=== PATIENT | female | born 1960 | race Caucasian/White ===

== ENCOUNTER 2017-09-14 09:00 | Outpatient (CLI) | payer BC ==
[2017-09-14 15:31] LABS: #Eosinphils 0.3 thou/uL (0.0-0.7); #Lymphocytes 2.6 thou/uL (1.20-3.40); #Monocytes 0.8 thou/uL (0.11-0.59); #Neutrophils 3.5 thou/uL (1.40-6.50); %Basophils 0.3 % (0.0-1.0); %Eosinophils 3.6 % (0.0-10.0); %Lymphocytes 36.4 % (21.0-51.0); %Monocytes 11.6 % (0.0-10.0); Hematocrit 35.6 % (36.0-47.0); Mean Platelet Volume 8.4 fL (7.4-10.4); Red Blood Cell (RBC) Count 4.14 mill/uL (4.20-5.40); White Blood Cell (WBC) Count 7.2 thou/uL (4.8-10.8)
[2017-09-14 15:55] LABS: ALT (SGPT) 38 U/L (8-55); AST (SGOT) 46 U/L (5-34); Alkaline Phosphatase 133 U/L (40-150); Anion Gap 14 mmol/L (10-20); BUN (Urea Nitrogen) 13 mg/dL (9.8-20.1); Bilirubin, Total 0.3 mg/dL (0.2-1.2); Calc. Creatinine Clearance 0 mL/min (70-130); Calcium 9.3 mg/dL (7.8-10.44); Carbon Dioxide 28 mmol/L (22-29); Chloride 103 mmol/L (98-107); Estimated GFR-MDRD 54; Globulin 3.3 g/dL (2.4-3.5); Protein, Total 7.1 g/dL (6.0-8.3)
--- NOTE | 2017-09-14 18:10 | EKG ---
Test Reason : Blood Pressure : / mmHG Vent. Rate : 090 BPM Atrial Rate : 090 BPM P-R Int : 124 ms QRS Dur : 088 ms QT Int : 372 ms P-R-T Axes : 056 051 006 degrees QTc Int : 455 ms Normal sinus rhythm Nonspecific ST and T wave abnormality Abnormal ECG When compared with ECG of 24-JUN-2016 17:26, Nonspecific T wave abnormality now evident in Anterior leads Confirmed by DR. Darrian CHAMBERLAIN ([id number]) on 09/14/2017 6:09:57 PM Referred By: JOSE Confirmed By:DR. Darrian CHAMBERLAIN
== END 2017-09-14 09:01 | disposition home or self-care (01) ==
LOC: LABBT 09:00
PROVIDERS: ATTEND Surgery
DX: Z01.818 Encounter for other preprocedural examination (principal); N62 Hypertrophy of breast
CPT/HCPCS: 80053; 85025; 93005; 93010

== ENCOUNTER 2017-09-15 07:06 | Day surgery (SDC) | payer BC ==
[2017-09-14 15:22] VITALS: BMI 36.6
[2017-09-15] MEDS ORDERED: CEFAZOLIN/Water 2 GM/20 ML SYRINGE ONE (08:39)
[2017-09-15] MEDS ORDERED: Bupivacaine/Epinephrine 0.25% 30 ML VIAL ONE (10:24)
[2017-09-15] MEDS ORDERED: Midazolam HCl 2 mg/2 ml Vial ONE (10:30)
[2017-09-15] MEDS ORDERED: Fentanyl 100 MCG/2 ML VIAL ONE ×3 (10:30→11:52)
--- NOTE | 2017-09-15 11:53 | OP ---
PREOPERATIVE DIAGNOSIS: Atypical ductal hyperplasia, right breast. SURGEON: Subhash Hernandez M.D. PROCEDURE PERFORMED: Right needle localization lumpectomy. INDICATIONS: A 57-year-old female who had an abnormal mammogram, underwent a core needle biopsy came back positive for atypical ductal hyperplasia, here for reexcision. FINDINGS: Very superficial lesion was actually visible just under the skin, anteriorly under the are alexandra. DESCRIPTION OF PROCEDURE: After informed consent was obtained, the patient was taken to the operatin g room and given general mask anesthesia, placed in the supine position. Her chest was prepped and d raped in the usual fashion. Local anesthesia infiltrated subcutaneously and deep. She had undergone needle localization in the mammography suite. A circumareolar incision was performed. Subcu divide d sharply. The skin was dissected just very anterior right below the skin and then a core of breast tissue excised around the needle. It was marked with the black suture anterior and the needle latera l and a blue suture superior, sent to pathology for further analysis. Hemostasis was achieved with e lectrocautery. The subcutaneous reapproximated with interrupted 3-0 Vicryl. Skin closed with a runn ing subcuticular 4-0 Rapide. Steri-Strips applied. Sterile bandage applied. The patient tolerated the procedure well and transferred to recovery in good condition. Sponge and needle count verified c orrect x2.
[2017-09-15] MEDS ORDERED: HYDROcodone/Acetaminophen 5/325 mg Tablet ONE (13:07)
--- NOTE | 2017-09-15 13:10 | MMO ---
MAMMOGRAPHIC GUIDED NEEDLE LOCALIZATION OF RIGHT BREAST MASS SURGICAL SPECIMEN MAMMOGRAPHY OF RIGHT BREAST: HISTORY: Atypical ductal hyperplasia, right breast. FINDINGS: After explaining the procedure and answering all questions, the lateral aspect of the right breast wa s prepped and draped in the usual sterile fashion. Sterile technique, buffered local anesthesia, petey mographic guidance, and a lateral approach were used to carefully advance the tip of a 5 cm [place] nee dle and wire, to lie immediately deep to the localization clip and lobulated mass at the anterior-inf erior aspect of the right breast. Position was confirmed with mammography. The localization wire an d needle were left in place. The patient tolerated the procedure well and was transferred to surgery in good condition. Surgical specimen mammography obtained by Dr. Hernandez shows the localization wire, the clip, and the lo bulated mass to be within the surgical specimen. IMPRESSION: Technically successful needle localization of right breast mass. POS: [facility]
[2017-09-15] MEDS ORDERED: Dexamethasone 20 MG/5 ML VIAL ONE (16:31)
[2017-09-15] MEDS ORDERED: Propofol 200 MG/20 ML VIAL ONE (16:31)
[2017-09-15] MEDS ORDERED: Ondansetron HCl/PF 4 MG/2 ML Vial ONE (16:31)
[2017-09-15] MEDS ORDERED: diphenhydrAMINE 50 MG/ML VIAL ONE (16:31)
[2017-09-15] MEDS ORDERED: Lidocaine 1% PF 5 ML VIAL ONE (16:31)
== END 2017-09-15 13:33 | disposition home or self-care (01) ==
LOC: SDC 07:06
PROVIDERS: ATTEND Surgery
PROC: 0HBT0ZZ Excision of Right Breast, Open Approach (ICD-10-PCS; principal; 2017-09-15)
DX: N60.89 Other benign mammary dysplasias of unspecified breast (principal); Z88.1 Allergy status to other antibiotic agents; Z88.5 Allergy status to narcotic agent; Z98.890 Other specified postprocedural states; Z90.710 Acquired absence of both cervix and uterus; Z90.722 Acquired absence of ovaries, bilateral; Z79.818 Long term (current) use of other agents affecting estrogen receptors and estrogen levels; Z79.899 Other long term (current) drug therapy
CPT/HCPCS: 19281; 76098; 88307; 96374; J1100; J1200; J2001; J2250; J2405; J2704; J3010; J7620

== ENCOUNTER 2017-12-29 08:30 | Outpatient (CLI) | payer BC ==
[~2017-12-29 08:30] MED LIST: Iopamidol 370 76% 100 ML VIAL ONE
== END 2017-12-29 08:31 | disposition home or self-care (01) ==
LOC: BICCT 08:30
PROVIDERS: ATTEND Surgery
DX: I89.8 Other specified noninfective disorders of lymphatic vessels and lymph nodes (principal); E27.8 Other specified disorders of adrenal gland; N94.89 Other specified conditions associated with female genital organs and menstrual cycle
CPT/HCPCS: 74177

== ENCOUNTER 2018-02-07 15:18 | Outpatient (CLI) | payer BC ==
[2018-02-07 16:10] LABS: #Basophils 0.1 thou/uL (0.0-0.2); #Eosinphils 0.1 thou/uL (0.0-0.7); #Lymphocytes 4.1 thou/uL (1.20-3.40); #Neutrophils 7.2 thou/uL (1.40-6.50); %Basophils 0.4 % (0.0-1.0); %Eosinophils 1.1 % (0.0-10.0); %Monocytes 8.3 % (0.0-10.0); %Neutrophils 57.3 % (42.0-75.0); Mean Corpuscular HGB CONC 33.4 g/dL (32.0-36.0); Mean Corpuscular Hemoglobin 27.8 pg (27.0-31.0); Mean Corpuscular Volume 83.1 fl (81.0-99.0); Mean Platelet Volume 8.7 fL (7.4-10.4); Platelet Count 349 thou/uL (130-400); RBC Distribution Width 12.8 % (11.5-14.5); Red Blood Cell (RBC) Count 4.33 mill/uL (4.20-5.40); White Blood Cell (WBC) Count 12.6 thou/uL (4.8-10.8)
[2018-02-07 16:30] LABS: ALT (SGPT) 12 U/L (8-55); AST (SGOT) 16 U/L (5-34); Albumin 4.2 g/dL (3.5-5.0); Alkaline Phosphatase 128 U/L (40-150); Anion Gap 11 mmol/L (10-20); BUN (Urea Nitrogen) 15 mg/dL (9.8-20.1); Bilirubin, Total 0.3 mg/dL (0.2-1.2); Calc. Creatinine Clearance 0 mL/min (70-130); Calcium 9.5 mg/dL (7.8-10.44); Carbon Dioxide 28 mmol/L (22-29); Chloride 101 mmol/L (98-107); Estimated GFR-MDRD 66; Globulin 3.7 g/dL (2.4-3.5); Glucose 96 mg/dL (70-105); Potassium 3.3 mmol/L (3.5-5.1); Protein, Total 7.9 g/dL (6.0-8.3); Sodium 137 mmol/L (136-145)
== END 2018-02-07 15:19 | disposition home or self-care (01) ==
LOC: LABBT 15:18
PROVIDERS: ATTEND Surgery
DX: Z01.818 Encounter for other preprocedural examination (principal); N94.89 Other specified conditions associated with female genital organs and menstrual cycle
CPT/HCPCS: 80053; 85025; 93005; 93010

== ENCOUNTER 2018-02-09 06:08 | Day surgery (SDC) | payer BC ==
[2018-02-07 15:58] VITALS: BMI 37.2
[2018-02-09] MEDS ORDERED: Bupivacaine/Epinephrine 0.25% 30 ML VIAL ONE (06:34)
[2018-02-09] MEDS ORDERED: Midazolam HCl 2 mg/2 ml Vial ONE ×2 (07:08→07:20)
[2018-02-09] MEDS ORDERED: Fentanyl 100 MCG/2 ML VIAL ONE ×3 (07:08→10:16)
[2018-02-09] MEDS ORDERED: Levofloxacin 500 mg/D5W 100 ml Premix Bag ONE (07:20)
--- NOTE | 2018-02-09 07:29 | HP ---
CHIEF COMPLAINT: Recurrent pelvic cyst. HISTORY: The patient is a 57-year-old female who developed a pelvic lymphocele after a hysterectomy in 2004 that was resected in 06/2016 and has recurred. It is causing fullness and pain with urinatio n. She had a cystoscopy that was unremarkable. The cyst is 8 cm, nonseptated, it is attached to the bladder. PAST MEDICAL HISTORY: Significant for decreased hearing, kidney stones, hyperlipidemia, hypertension . PAST SURGICAL HISTORY: Hysterectomy and the resection of pelvic lymphocele. MEDICATIONS: Crestor, metoprolol, Effexor, estradiol. ALLERGIES: CECLOR and MORPHINE. SOCIAL HISTORY: She is . Occasional alcohol, no tobacco. PHYSICAL EXAMINATION: VITAL SIGNS: Height 5 foot 3, weight 207, body mass index 36.66. Blood pressure 142/77, pulse 69. GENERAL: Well-developed, well-nourished female in no apparent distress. HEENT: Unremarkable. LUNGS: Clear. HEART: Regular rate and rhythm. ABDOMEN: Soft, nontender, no palpable masses or hernias. EXTREMITIES: Good pulses. No pedal edema. ASSESSMENT: Recurrent pelvic lymphocele. PLAN: Laparoscopic resection. CONSENT: I have discussed the planned procedure as well as risk of bleeding, infection, recurrence, need to open, injury to bowel, injury to bladder. She understands and gives informed consent.
--- NOTE | 2018-02-09 09:29 | OP ---
PREOPERATIVE DIAGNOSIS: Recurrent pelvic lymphatic cyst. SURGEON: Subhash Hernandez M.D. PROCEDURE PERFORMED: Laparoscopic pelvic cystectomy with application of tissue sealant and lysis of adhesions. INDICATIONS: This is a 57-year-old female who developed a lymphatic cyst after hysterectomy. This w as actually opened up and drained and left open about 2 years ago with recurrence. FINDINGS: About an 8 cm cystic mass in the deep pelvic inlet that was attached to small bowel anteri or rectum inferiorly and posteriorly as well as bladder inferiorly was able to resect about 90% of it and then applied to seal tissue sealant to the remaining wall that was left in situ. PROCEDURE IN DETAIL: After informed consent was obtained, patient was taken to the operating room an d given general endotracheal anesthesia. She was placed in the supine position and her abdomen was p repped and draped in usual fashion. Local anesthesia infiltrated subcutaneously and deep. A 5-mm in cision was performed on the left upper quadrant. Veress needle inserted. Drop test performed. Pneu moperitoneum was created to a volume of 2 liters of carbon dioxide. Utilizing a bladeless 5 mm troca r and 0-degree laparoscope, direct visual entry into abdominal cavity was performed. Pneumoperitoneu m was then created to a pressure of 15 mmHg. Under direct vision, two other 5-mm ports were placed, one subumbilical and one right upper quadrant. A laparoscopic lysis of adhesions was performed utili zing the LigaSure as well as sharp dissection with Metzenbaum scissors. The anterior abdominal wall was freed up to expose the cyst, small bowel was attached to it. This was taken down carefully with Metzenbaum scissors. I was able to get it dissected out off the bladder to some degree all the way d own to where it was attaching to the distal sigmoid mesentery and rectum as well as to the lower port ion of the bladder. It became very difficult to do any further dissection. So at this point, we abel t ahead and punctured the cyst and removed all the fluid. Then tried further dissection, but it was firmly attached to these structures. I did not feel it was safe to try and get it off at this point. So I elected to resect as much of the cyst wall as I could. It got about 90%, leaving a small piec e to attached to these more critical structures. Then in order to try and feel any lymphatic leak, u sed to seal tissue sealant and applied this to the remaining cyst wall and pelvic structures to try a nd reduce any lymphatic drainage. Hemostasis assured. I had to enlarge the upper quadrant incision, put out 11 mm trocar and so that I could put a bag, an Endosac in, place at the wall in Endosac, ret rieved it to sent to pathology. Then this 11 mm trocar site was closed with a 0 Vicryl suture and nel Baker needle. Trocars and retractors removed. Skin closed with interrupted 4-0 Rapide. Dermabon d applied. The patient tolerated the procedure well and was transferred to recovery in good conditio n. Sponge and needle count verified correct x2.
[2018-02-09] MEDS ORDERED: Ropivacaine 0.5% HCl/PF (150 MG/30 ML VIAL) ONE (11:42)
[2018-02-09] MEDS ORDERED: HYDROcodone/Acetaminophen 5/325 mg Tablet ONE (11:43)
[2018-02-09] MEDS ORDERED: Morphine 4 MG/ML VIAL ONE (12:32)
== END 2018-02-09 12:55 | disposition home or self-care (01) ==
LOC: SDC 06:08
PROVIDERS: ATTEND Surgery
PROC: 0JBC3ZZ Excision of Pelvic Region Subcutaneous Tissue and Fascia, Percutaneous Approach (ICD-10-PCS; principal; 2018-02-09)
DX: N94.89 Other specified conditions associated with female genital organs and menstrual cycle (principal); K66.8 Other specified disorders of peritoneum; Z88.5 Allergy status to narcotic agent; Z88.1 Allergy status to other antibiotic agents; Z90.710 Acquired absence of both cervix and uterus
CPT/HCPCS: 88305; 96374; J1956; J2250; J2270; J2795; J3010

== ENCOUNTER 2018-10-21 15:45 | Outpatient (CLI) | payer BC | END 2018-10-21 15:46 | disposition home or self-care (01) | LOC: BICMAMMO 15:45 | PROVIDERS: ATTEND Internal Medicine | DX: Z12.31 Encounter for screening mammogram for malignant neoplasm of breast (principal); R92.1 Mammographic calcification found on diagnostic imaging of breast | CPT/HCPCS: 77063; 77067 ==

== ENCOUNTER 2019-11-02 16:03 | Outpatient (CLI) | payer BC ==
--- NOTE | 2019-11-03 12:02 | MMO ---
Bilateral MAMMO Bilat Screen [facility]. CLINICAL HISTORY: Patient is 59 years old and is seen for screening. The patient has no family history of breast cancer. The patient has no personal history of cancer. The patient has a history of right Ultrasound Guided Core Biopsy in Jan, 2017 - benign. VIEWS: The views performed were: bilateral craniocaudal with tomosynthesis and bilateral mediolateral oblique with tomosynthesis. FILMS COMPARED: The present examination has been compared to prior imaging studies performed at [facility] on 01/07/2017, 01/12/2017, 08/23/2017 and 10/21/2018. This study has been interpreted with the assistance of computer-aided detection. MAMMOGRAM FINDINGS: There are scattered fibroglandular densities. Benign calcifications are noted bilaterally. Nodularity is stable. There are no suspicious masses, suspicious calcifications, or new areas of architectural distortion. IMPRESSION: THERE IS NO MAMMOGRAPHIC EVIDENCE OF MALIGNANCY. A ROUTINE FOLLOW-UP MAMMOGRAM IN 1 YEAR IS RECOMMENDED. THE RESULTS OF THIS EXAM WERE SENT TO THE PATIENT. ACR BI-RADS Category 2 - Benign finding MAMMOGRAPHY NOTE: 1. A negative mammogram report should not delay a biopsy if a dominant of clinically suspicious mass is present. 2. Approximately 10% to 15% of breast cancers are not detected by mammography. 3. Adenosis and dense breasts may obscure an underlying neoplasm. Reported by: DESHAUN PATTERSON MD Electonically Signed: [id number]
== END 2019-11-02 16:04 | disposition home or self-care (01) ==
LOC: BICMAMMO 16:03
PROVIDERS: ATTEND Internal Medicine
DX: Z12.31 Encounter for screening mammogram for malignant neoplasm of breast (principal)
CPT/HCPCS: 77063; 77067

== ENCOUNTER 2021-01-13 15:26 | Outpatient (CLI) | payer BC | END 2021-01-13 15:27 | disposition home or self-care (01) | LOC: BICMAMMO 15:26 | PROVIDERS: ATTEND Internal Medicine | DX: Z12.31 Encounter for screening mammogram for malignant neoplasm of breast (principal) | CPT/HCPCS: 77063; 77067 ==

== ENCOUNTER 2022-01-26 13:13 | Outpatient (CLI) | payer BC | END 2022-01-26 13:14 | disposition home or self-care (01) | LOC: BICMAMMO 13:13 | PROVIDERS: ATTEND Internal Medicine | DX: Z12.31 Encounter for screening mammogram for malignant neoplasm of breast (principal) | CPT/HCPCS: 77063; 77067 ==

== ENCOUNTER 2022-09-24 07:40 | Outpatient (CLI) | payer BC | END 2022-09-24 07:41 | disposition home or self-care (01) | LOC: SCSMRI 07:40 | PROVIDERS: ATTEND Podiatrist | DX: M76.72 Peroneal tendinitis, left leg (principal); M79.672 Pain in left foot; G89.29 Other chronic pain; M77.52 Other enthesopathy of left foot and ankle; M65.872 Other synovitis and tenosynovitis, left ankle and foot ==

== ENCOUNTER 2023-03-26 12:59 | Outpatient (CLI) | payer BC | END 2023-03-26 13:00 | disposition home or self-care (01) | LOC: BICMAMMO 12:59 | PROVIDERS: ATTEND Family Medicine | DX: Z12.31 Encounter for screening mammogram for malignant neoplasm of breast (principal); M81.0 Age-related osteoporosis without current pathological fracture; M85.851 Other specified disorders of bone density and structure, right thigh; M85.852 Other specified disorders of bone density and structure, left thigh; Z91.89 Other specified personal risk factors, not elsewhere classified | CPT/HCPCS: 77063; 77067; 77080 ==

== ENCOUNTER 2023-10-26 14:08 | Outpatient (CLI) | payer BC | END 2023-10-26 14:09 | disposition home or self-care (01) | LOC: BICULT 14:08 | PROVIDERS: ATTEND Internal Medicine Nephrology | DX: N18.1 Chronic kidney disease, stage 1 (principal) | CPT/HCPCS: 76770 ==

== ENCOUNTER 2024-03-03 16:00 | Outpatient (CLI) | payer BC | END 2024-03-03 16:01 | disposition home or self-care (01) | LOC: SLEEPLAB 16:00 | PROVIDERS: ATTEND Internal Medicine | DX: G47.33 Obstructive sleep apnea (adult) (pediatric) (principal) | CPT/HCPCS: 95811 ==

== ENCOUNTER 2025-05-07 15:57 | Outpatient (CLI) | payer BC, MEDICARE | END 2025-05-07 15:58 | disposition home or self-care (01) | LOC: BICMAMMO 15:57 | PROVIDERS: ATTEND Family Medicine | DX: Z12.31 Encounter for screening mammogram for malignant neoplasm of breast (principal); Z91.89 Other specified personal risk factors, not elsewhere classified | CPT/HCPCS: 77063; 77067 ==

== ENCOUNTER 2025-07-18 08:04 | Outpatient (CLI) | payer MEDICARE | END 2025-07-18 08:05 | disposition home or self-care (01) | LOC: ULT 08:04 | PROVIDERS: ATTEND Family Medicine | DX: R10.84 Generalized abdominal pain (principal); R14.0 Abdominal distension (gaseous); Z90.710 Acquired absence of both cervix and uterus; R16.0 Hepatomegaly, not elsewhere classified; K76.0 Fatty (change of) liver, not elsewhere classified | CPT/HCPCS: 76700; 76856 ==

== ENCOUNTER 2025-07-18 09:52 | Outpatient (CLI) | payer MEDICARE | END 2025-07-18 09:53 | disposition home or self-care (01) | LOC: BICMAMMO 09:52 | PROVIDERS: ATTEND Family Medicine | DX: Z78.0 Asymptomatic menopausal state (principal); M85.859 Other specified disorders of bone density and structure, unspecified thigh | CPT/HCPCS: 77080 ==